=== PATIENT | female | born 1955 | race Caucasian/White ===

== ENCOUNTER 2016-12-20 09:57 | Inpatient (IN) ==
--- NOTE | 2016-12-20 10:04 | Emergency Department Note ---
Disposition Clinical Impression: Supratherapeutic INR Pneumonia Qualifiers: Pneumonia type: due to unspecified organism Laterality: unspecified laterality Lung location: unspecified part of lung Qualified Code(s): J18.9 - Pneumonia, unspecified organism Anemia Qualifiers: Anemia type: unspecified type Qualified Code(s): D64.9 - Anemia, unspecified Disposition: Admitted As Inpatient Condition: Good Referrals: Cesar Hendrix MD [Primary Care Provider] - Forms: ED Satisfaction Letter Time of Disposition: 14:47 SOB HPI - General Chief Complaint: ED Shortness of Breath/Dyspnea Stated Complaint: MARK/weakness Time Seen by Provider: 12/20/16 10:03 Source: patient Limitations: no limitations Nursing Notes Reviewed: Yes Vital Signs Reviewed: Yes - History of Present Illness Mrs. Freire, a 61-year-old female, presents from home via EMS for dyspnea. Patient is a difficult historian area and history obtained from patient and who is now bedside. For last 2 days, patient has had progressive increased work of breathing. She has a history of COPD but does not use any home oxygen. She also describes a heavy sensation in her abdomen which progresses and floats upward toward her head; states this is consistent with her previous anxiety attacks. Additionally, patient reports increased confusion onset after a syncopal episode. Patient was caught by her thus did not fall and did not strike her head. She has no history of CVA or TIA. She has had no slurring of speech and no focal neurologic deficits but increase in confusion. Had arthroscopic left shoulder surgery approximately 3 weeks ago. PMH: Recurrent DVT on Coumadin. Seizure history on Dilantin. Anxiety and depression. ROS: Positive: As above Negative: Fever, chills, nausea, vomiting, hematochezia, melena, hematuria, abdominal pain, chest pains, palpitations, change in cough - Related Data Home Medications Medication Instructions Recorded Confirmed FLUoxetine HCl [Fluoxetine HCl] 40 mg PO DAILY 12/20/16 12/20/16 Phenytoin ER [Dilantin ER] 400 mg PO QAM 12/20/16 12/20/16 Warfarin [Coumadin] 5 mg PO QPM 12/20/16 12/20/16 Allergies Allergy/AdvReac Type Severity Reaction Status Date / Time Penicillins Allergy Rash Verified 10/30/14 05:23 All systems ED: reviewed and negative except as stated. 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 HEENT: No facial asymmetry. Head is normocephalic and atraumatic. PERRLA, EOMI. scopic exam shows no papilledema bilaterally, no retinal hemorrhages. Trachea midline. Cardiovascular: Heart regular rate and rhythm without clicks, rubs, gallops, or murmurs. No JVD. PMI nondisplaced. Lateral radial posterior tibial pulses 2/ 4 equal. No pedal edema. Respiratory: Symmetric chest rise with good respiratory effort. Bilateral breath sounds are diminished with diffuse wheeze; no crackles or rhonchi. Abdomen: Scaphoid. Bowel sounds present normoactive x-4 quadrants. Abdomen is soft, nondistended, and nontender. No organomegaly noted. Musculoskeletal: Muscle strength 5/5 and symmetric bilaterally in upper and lower extremities. Neuro: Cranial nerves II through XII without deficit. Sensation light touch intact and equal bilaterally. No pronator drift. No cerebellar signs. Negative [id number]. Psych: Patient's affect is appropriate for situation. - General Limitations: no limitations General appearance: alert, in no apparent distress Course Course Narrative: Patient's presenting symptoms this necessitated a broad workup. Will perform chest pain workup as well as CT head. Patient has supratherapeutic INR. No clinical evidence of bleeding. We will hold on vitamin K or blood product at this time. Continue to monitor. Patient is anemic with hemoglobin 8.5. No clinical indication to transfuse at this time. No prior records for comparison. We will continue to monitor. Chest x-ray and physical exam concerning for pneumonia. Patient comes from home and has no recent hospitalizations; this is community acquired pneumonia. Will begin empiric treatment. CT head has a questionable density changes. No clinical concern for acute infarct. Will admit for MRI. Discussed in detail above with the patient and her and son at bedside. They are in agreement to admission for continued workup and evaluation. There are no additional questions or concerns at this time. Reason for admission: Supratherapeutic INR, anemia, respiratory failure secondary to pneumonia requiring some oxygen which she does not have a home. I discussed the patient with the admitting hospitalist, Dr. Hernández, who agrees to accept the patient for continued evaluation and management. Chest X-Ray 12/20/16 10:05 IMPRESSION: 1. Patchy airspace opacity in the right base. In the proper clinical setting, finding would be compatible with pneumonia. Recommend follow-up chest radiograph 6-8 weeks post completion of treatment to ensure resolution. If finding persists at that time, CT of the chest would be recommended. 2. Emphysema. D/ / Brian Adams MD / Brian Adams MD Interpreting Provider: Brian Adams MD Head CT 12/20/16 10:05 IMPRESSION: 1. No acute intracranial hemorrhage or global mass effect. 2. Questionable subcentimeter focus of cbaral-white interface hypodense changes. This could represent volume averaging artifact or possible remote process. If concern for acute infarct evaluation with MRI could be helpful. D/ / 12/20/2016 11:02:41 Anshu Oropeza MD / yamileth Interpreting Provider: Anshu Oropeza MD Vital Signs Temperature 98.4 F 12/20/16 09:59 Pulse Rate 86 12/20/16 09:59 Respiratory Rate 18 12/20/16 09:59 Blood Pressure 170/112 12/20/16 09:59 O2 Sat by Pulse Oximetry 96 12/20/16 09:59 Temperature 98.4 F 12/20/16 09:59 Pulse Rate 94 12/20/16 15:02 Respiratory Rate 16 12/20/16 15:02 Blood Pressure 145/84 12/20/16 15:02 O2 Sat by Pulse Oximetry 94 12/20/16 15:02 Oxygen Delivery Oxygen Delivery Room Air Shortness of Breath/Dyspnea - Lab Data Result diagrams: 12/20/16 10:08 12/20/16 10:08 Lab Results 12/20/16 12/20/16 12/20/16 Range/Units 10:08 10:08 10:08 WBC 8.7 (4.3-11.1) K/mcL RBC 5.10 H (3.82-4.97) M/mcL Hgb 8.5 L (11.5-15.4) g/dL Hct 30.0 L (35.3-44.9) % MCV 58.8 L (83.0-100.0) fL MCH 16.7 L (28.0-33.3) pg MCHC 28.3 L (31.6-35.5) g/dL RDW 23.0 H (11.5-14.5) % Plt Count 441 H (140-400) K/mcL MPV 8.2 L (9.4-12.4) fL Immature Gran % 0.2 (0-4) % Seg Neutrophils % 75.7 % Lymphocytes % 16.1 % Monocytes % 6.2 % Eosinophils % 1.1 % Basophils % 0.7 % Neutrophils # 6.6 (1.6-8.9) K/mcL Lymphocytes # 1.4 (0.6-4.6) K/mcL Monocytes # 0.5 (0.0-1.3) K/mcL Eosinophils # 0.1 (0.0-0.6) K/mcL Basophils # 0.1 (0.0-0.2) K/mcL Platelet Estimate Normal (Normal) Immature Plt Fraction 1.5 (1.1-6.1) % Hypochromasia Present A (Not Present) Anisocytosis 1+ A (Not Present) Microcytosis Present A (Not Present) Macrocytosis Present A (Not Present) PT 67.0 H* D (9.4-12.1) Seconds INR 6.0 H* D Sodium 132 L (136-145) mEq/L Potassium 3.5 (3.5-4.5) mEq/L Chloride 97 L (98-109) mEq/L Carbon Dioxide 28 (19-29) mEq/L BUN 6 L (7-20) mg/dL Creatinine 0.60 (0.57-1.11) mg/dL Est GFR ( Amer) > 60 (> 60) Est GFR (Non-Af Amer) > 60 (> 60) BUN/Creatinine Ratio 10 (6-26) Glucose 105 H (70-99) mg/dL Calculated Osmolality 272 L (280-300) Calcium 9.6 (8.6-10.8) mg/dL Troponin I (0-0.03) ng/mL TSH 0.745 (0.350-4.840) mcIU/mL Urine Color (Yellow) Urine Clarity (Clear) Urine pH (5.0-8.0) pH Units Ur Specific [place] (1.010-1.025) Urine Protein (Neg-Trace) mg/dL Urine Glucose (UA) (Normal) mg/dL Urine Ketones (Negative) mg/dL Urine Blood (Negative) Urine Nitrite (Negative) Urine Bilirubin (Negative) Urine Urobilinogen (Normal) mg/dL Ur Leukocyte Esterase (Negative) Ur Culture Indicated? (NO) 12/20/16 12/20/16 Range/Units 10:08 11:43 WBC (4.3-11.1) K/mcL RBC (3.82-4.97) M/mcL Hgb (11.5-15.4) g/dL Hct (35.3-44.9) % MCV (83.0-100.0) fL MCH (28.0-33.3) pg MCHC (31.6-35.5) g/dL RDW (11.5-14.5) % Plt Count (140-400) K/mcL MPV (9.4-12.4) fL Immature Gran % (0-4) % Seg Neutrophils % % Lymphocytes % % Monocytes % % Eosinophils % % Basophils % % Neutrophils # (1.6-8.9) K/mcL Lymphocytes # (0.6-4.6) K/mcL Monocytes # (0.0-1.3) K/mcL Eosinophils # (0.0-0.6) K/mcL Basophils # (0.0-0.2) K/mcL Platelet Estimate (Normal) Immature Plt Fraction (1.1-6.1) % Hypochromasia (Not Present) Anisocytosis (Not Present) Microcytosis (Not Present) Macrocytosis (Not Present) PT (9.4-12.1) Seconds INR Sodium (136-145) mEq/L Potassium (3.5-4.5) mEq/L Chloride (98-109) mEq/L Carbon Dioxide (19-29) mEq/L BUN (7-20) mg/dL Creatinine (0.57-1.11) mg/dL Est GFR ( Amer) (> 60) Est GFR (Non-Af Amer) (> 60) BUN/Creatinine Ratio (6-26) Glucose (70-99) mg/dL Calculated Osmolality (280-300) Calcium (8.6-10.8) mg/dL Troponin I 0.01 (0-0.03) ng/mL TSH (0.350-4.840) mcIU/mL Urine Color Yellow (Yellow) Urine Clarity Slightly Hazy (Clear) Urine pH 7.0 (5.0-8.0) pH Units Ur Specific [place] 1.017 (1.010-1.025) Urine Protein Negative (Neg-Trace) mg/dL Urine Glucose (UA) Normal (Normal) mg/dL Urine Ketones Negative (Negative) mg/dL Urine Blood Negative (Negative) Urine Nitrite Negative (Negative) Urine Bilirubin Negative (Negative) Urine Urobilinogen Normal (Normal) mg/dL Ur Leukocyte Esterase Negative (Negative) Ur Culture Indicated? NO (NO) Critical Care Time Critical Care Time: Yes Total Critical Care Time: 35 Attestation: Critical care time 35 minutes. Attestation Statement - Attestation Attestation: Patient was seen with resident physician. I reviewed the history, physical, assessment and plan, and agree with the findings. I also personally evaluated this patient and had [id number] time with this patient. 61-year-old female presents to the emergency department with a chief complaint of weakness and shortness of breath. Patient is a history of COPD. Apparently she was getting some lab tests done and she had a syncopal or near syncopal episode. The not sure if she actually passed out all the way or not. She said the symptoms then continued with some confusion and difficulty, pushing past. No focal weakness. Because they have not resolved since . She came in for evaluation and treatment today. She denies fevers chills chest pain or shortness of breath. On exam vital signs are stable. ENT is unremarkable. Heart sounds are normal. Lung has diffuse wheezing throughout all lung stone. Abdomen is soft and nontender. Extremities unremarkable. Neurologically the patient is intact, and I cannot find any focal neurologic deficits. ED course we will do a complete workup for neurologic and syncopal findings. We will also treat and workup for COPD exacerbation. Chest x-ray revealed possible pneumonia. CT scan of the head initially revealed a possible area which needed an MRI to exclude hemorrhage. The MRI was negative. Had long discussion with the patient who did not want the MRI and did not want to stay in the hospital, however she has multiple problems which do require hospitalization and further workup. We gave the patient some Ativan to help her relax which did allow her to tolerate the workup. We also spoke with the hospitalist service to arrange for admission. Patient hemodynamically remained stable, but she will need some pulmonary care as well as further workup for her symptoms of confusion. Will admit to the hospitalist service for additional evaluation and treatment. I agree with resident physician assessment and plan. Critical care time 35 minutes.
[2016-12-20] MEDS ORDERED: methylPREDNISolone 125 MG/2 ML VIAL IVP ONE (10:05)
[2016-12-20] MEDS ORDERED: Ipratropium/Albuterol Neb 3 ML IH ONE (10:05)
[2016-12-20 10:17] LABS: Basophils % 0.7 %
[2016-12-20 10:19] LABS: Basophils # 0.1 K/mcL (0.0-0.2); Eosinophils # 0.1 K/mcL (0.0-0.6); Eosinophils % 1.1 %; Hemoglobin 8.5 g/dL (11.5-15.4); Immature Granulocytes % 0.2 % (0-4); Immature Platelets 1.5 % (1.1-6.1); Lymphocytes # 1.4 K/mcL (0.6-4.6); Lymphocytes % 16.1 %; Mean Corpuscular HGB Conc 28.3 g/dL (31.6-35.5); Mean Corpuscular Hemoglobin 16.7 pg (28.0-33.3); Mean Corpuscular Volume 58.8 fL (83.0-100.0); Mean Platelet Volume 8.2 fL (9.4-12.4); Monocytes # 0.5 K/mcL (0.0-1.3); Monocytes % 6.2 %; Neutrophils # 6.6 K/mcL (1.6-8.9); Platelet Count 441 K/mcL (140-400); Segmented Neutrophils % 75.7 %
[2016-12-20 10:29] LABS: Blood Urea Nitrogen 6 mg/dL (7-20); Calcium 9.6 mg/dL (8.6-10.8); Carbon Dioxide 28 mEq/L (19-29); Chloride 97 mEq/L (98-109); Glucose 105 mg/dL (70-99); Osmolality,Calculated 272 (280-300); Potassium 3.5 mEq/L (3.5-4.5); Sodium 132 mEq/L (136-145)
[2016-12-20 10:45] LABS: BUN/Creatinine Ratio 10 (6-26); eGFR For African Americans > 60 (> 60); eGFR For Non-African Americans > 60 (> 60)
[2016-12-20 10:46] LABS: Anisocytosis 1+ (Not Present); Hypochromasia Present (Not Present); Macrocytosis Present (Not Present); Microcytosis Present (Not Present)
[2016-12-20 10:47] LABS: Platelet Estimate Normal (Normal)
[2016-12-20 11:07] LABS: Thyroid Stimulating Hormone 0.745 mcIU/mL (0.350-4.840)
[2016-12-20 12:09] LABS: Bilirubin,Urine Negative (Negative); Blood,Urine Negative (Negative); Color,Urine Yellow (Yellow); Glucose,Urine (UA) Normal (Normal); Ketones,Urine Negative (Negative); Leukocyte Esterase,Urine Negative (Negative); Nitrite,Urine Negative (Negative); Protein,Urine Negative (Neg-Trace); Specific Gravity,Urine 1.017 (1.010-1.025); Urobilinogen,Urine Normal (Normal)
[2016-12-20 12:12] LABS: Clarity,Urine Slightly Hazy (Clear)
[2016-12-20] MEDS ORDERED: *HR* LORazepam 2 MG/ML VIAL IVP ONE ×4 (12:40→17:01)
[2016-12-20] MEDS ORDERED: Azithromycin 500 MG in D5% in Water 250 ML IVPB ONE (14:45)
[2016-12-20] MEDS ORDERED: Ondansetron 4 MG/2 ML VIAL IVP PRN (16:51)
[2016-12-20] MEDS ORDERED: *HR* Morphine 2 MG/ML SYRINGE IVP PRN (16:51)
[2016-12-20] MEDS ORDERED: *HR* HYDROcodone/Acet 5/325 mg TABLET PO PRN (16:51)
[2016-12-20] MEDS ORDERED: Acetaminophen 325 MG TABLET PO PRN (16:51)
[2016-12-20] MEDS ORDERED: Naloxone 0.4 MG/ML INJ IVP PRN (16:51)
[2016-12-20] MEDS ORDERED: Benzonatate 100 MG CAPSULE PO PRN (16:59)
[2016-12-20 17:28] LABS: Hemoglobin 7.2 g/dL (11.5-15.4)
[2016-12-20 17:30] LABS: Hematocrit 25.2 % (35.3-44.9)
[2016-12-20] MEDS ORDERED: Warfarin perPT PO PRN (18:00)
[2016-12-20] MEDS: cefTRIAXone 1,000 MG in Water for inj. (sterile) 10 ML IVPB SCH (18:14)
[2016-12-20] MEDS: 0.9 % Sodium Chloride 1,000 ML IVC SCH (18:15)
--- NOTE | 2016-12-20 18:47 | Internal Med History&Physical ---
<Miguel AnavneetvineetRaul jay - Last Filed: 12/20/16 19:26> Date of Encounter: 12/20/16 Time of Encounter: 15:00 Assessment and Plan (1) Pneumonia Current visit: Yes Status: Acute CXR today shows patchy airspace opacities seen in the right base. The proper clinical setting finding would be compatible with pneumonia. IVPB azithromycin 500 mg daily and ceftriaxone 1,000 mg daily for infection coverage. DuoNebs Q6HR scheduled. Tessalon 100 mg TID for cough. Supplemental O2 w/titration and SpO2 monitoring. Blood cultures x2. Sputum culture. 0.9 NS @ 100 mL/HR. Patient does not currently meet SIRS criteria. Will monitor pt. and f/u labs for signs of increasing infection, cardiac, and/or respiratory distress. Pt. is at high risk for further infection/sepsis and/or respiratory distress based on current sx. Inpatient. Qualifiers: Pneumonia type: due to unspecified organism Laterality: unspecified laterality Lung location: unspecified part of lung Qualified Code(s): J18.9 - Pneumonia, unspecified organism (2) Supratherapeutic INR Current visit: Yes Status: Acute Acute PT of 67.0 and INR of 6.0 today on admission. Patient takes warfarin for anticoagulation. Coumadin to be continued pharmacy dosing. Monitor patient for signs of bleeding. Repeat labs in a.m. (3) Hyponatremia Current visit: Yes Status: Acute Acute hyponatremia and hypochloremia. Sodium 132 and chloride 97 on admission. Pt. receiving 0.9 NS 100 mL/HR. Will re-check f/u labs. (4) Anemia Current visit: Yes Status: Acute Acute anemia with Hgb of 8.5 and Hct of 30.0 earlier today dropping to 7.2 and 25.2 on second labs. Monitor H/H Q6HR. SCDs for DVT prophylaxis. Monitor pt. for signs of bleeding. Pt. previously typed and screened for possible transfusion. Qualifiers: Anemia type: unspecified type Qualified Code(s): D64.9 - Anemia, unspecified (5) Tobacco abuse Current visit: Yes Status: Chronic Hx of chronic tobacco abuse. Patient's reports she smokes 1 pack per day currently. (6) DVT prophylaxis Current visit: Yes Status: Acute Bilateral SCDs on LEs for DVT prophylaxis. Pharmacologic DVT prophylaxis contraindicated due to patient's currently dropping Hgb and Hct. Monitor pt. for signs of bleeding. Internal Medicine - H&P: HPI Chief complaint: SOB/Dyspnea Admitted From: Emergency Dept Plans for Post Hospital Care: Home History of present illness: Ms. Freire is a 61 year old female with medical hx of DVTs and seizures presents from the ED with chief complaint of shortness of breath and dyspnea since last . Patient's is primary information provider due to patient being somnolent from medication given prior to testing for agitation. Patient' s states she collapsed all on and he was able to catch her without her striking her head. He also states she has a history of anxiety attacks, has a history of COPD, and states she has become increasingly short of breath. He denies she has a history of CVA or TIA. He reports she has not had any recent illness, fever, chills, nausea, or, headaches, abdominal pain, chest pain, palpitations, changes, or unusual bleeding. Past Med Surg Social Fam HX - Past Medical History Source: old records reviewed, obtained from family Medical history: DVT, seizures Psychiatric history: anxiety, depression - Past Surgical History Surgical History: cholecystectomy - Social History Smoking Status: Current every day smoker Packs per day: 1 PPD Smokeless Tobacco Status: No Alcohol use: none Drug use: none Current living situation: Home, With Family Activity Level: Independent ambulation Recent Out of Country Travel Within the Last 8 Weeks: No Exposure or Possible Exposure to Illness During Travel: No Internal Medicine - H&P: Meds FLUoxetine HCl [Fluoxetine HCl] 40 mg PO DAILY 12/20/16 [History] Phenytoin ER [Dilantin ER] 400 mg PO QAM 12/20/16 [History] Warfarin [Coumadin] 5 mg PO QPM 12/20/16 [History] 3 Allergy/AdvReac Type Severity Reaction Status Date / Time Penicillins Allergy Rash Verified 10/30/14 05:23 ROS unobtainable: due to mental status, other (Patient's provides all ROS information) All Systems PM: A 10-system review of systems was performed and is negative for pertinent findings except as documented above in the HPI. - Constitutional Constitutional: no chills, no fever(s), no night sweats - EENT Eyes: no change in vision, no discharge, no pain, no photophobia Ears: no ear discharge, no ear pain, no tinnitus Nose, mouth and throat: no dysphagia, no nasal discharge, no neck pain, no sore throat - Breasts Breasts: as per HPI - Cardiovascular Cardiovascular ROS IM: dyspnea, dyspnea on exertion, syncope, no chest pain, no diaphoresis, no lightheadedness, no palpitations - Respiratory Respiratory: as per HPI, cough, dyspnea, dyspnea on exertion, wheezing - Gastrointestinal Gastrointestinal: no abdominal pain, no diarrhea, no hematemesis, no hematochezia, no melena, no nausea, no vomiting - Genitourinary Genitourinary: no change in urinary stream, no dysuria, no flank pain, no hematuria Menstruation: as per HPI - Musculoskeletal Musculoskeletal ROS IM: no numbness, no tingling - Integumentary Integumentary IM: no rash, no unusual bruising - Neurological Neurological ROS: no confusion, no convulsions, no focal weakness, no numbness, no tingling, no tremor(s) - Psychiatric Psychiatric: as per HPI, anxiety - Endocrine Endocrine IM: as per HPI - Hematologic/Lymphatic Hematologic/Lymphatic: no easy bruising - Allergic/Immunologic Allergic/Immunologic: as per HPI - Constitutional Vitals: Temp Pulse Resp BP Pulse Ox 98.1 F 93 15 131/75 94 12/20/16 15:55 12/20/16 15:55 12/20/16 15:55 12/20/16 15:55 12/20/16 15:55 General appearance: Present: A&O X 0 - Head Head exam: Present: normal inspection - Eye Eye exam: Present: normal appearance, PERRL, conjuntiva pink, sclera anicteric Pupils: Present: PERRL - ENT ENT exam: Present: normal exam - Neck Neck exam general surgery: Present: normal inspection - Respiratory Respiratory exam: Present: accessory muscle use, wheezes - Cardiovascular Cardiovascular exam: Present: RRR, +S1, +S2. Absent: diastolic murmur, gallop, rubs, systolic murmur - GI/Abdominal GI/Abdominal exam: Present: normal bowel sounds, soft, no peritoneal signs. Absent: distended, tenderness - Rectal Rectal exam: Present: deferred - Additional comments: exam deferred. - Extremities Exam Extremities exam: Present: warm, radial pulses palpable and symmetrical. Absent : calf tenderness, cyanotic, pedal edema - Back Exam Back exam: Present: normal inspection - Neurological Exam Neurological exam: Present: altered - Skin Skin exam: Present: dry, intact Internal Med - H&P Results - Labs CBC & Chem 7: 12/20/16 17:18 12/20/16 10:08 Labs: Short CBC 12/20/16 Range/Units 17:18 Hgb 7.2 L (11.5-15.4) g/dL Hct 25.2 L (35.3-44.9) % - EKG Data EKG shows normal: sinus rhythm - EKG Data Prior EKG available for review: yes EKG comments: 12/20/16 18:51 EKG dated 01/14/08 shows sinus rhythm with possible inferior infarct (age undetermined), and lateral T-wave changes may be d/t [place]. Abnormal ECG. EKG dated 12/20/16 shows sinus rhythm with nonspecific T-wave abnormality. Borderline ECG. <Ayush Hernández P - Last Filed: 12/21/16 13:38> Date of Encounter: 12/21/16 Internal Medicine - H&P: HPI History of present illness: Ms. Freire is a 61 year old female All Systems PM: A 10-system review of systems was performed and is negative for pertinent findings except as documented above in the HPI. - Constitutional Vitals: Temp Pulse Resp BP Pulse Ox 98.4 F 81 17 161/78 97 12/21/16 11:01 12/21/16 11:01 12/21/16 11:01 12/21/16 11:01 12/21/16 11:01 Internal Med - H&P Results - Labs CBC & Chem 7: 12/21/16 03:14 12/21/16 03:14 Labs: Short CBC 12/20/16 12/20/16 12/21/16 Range/Units 17:18 22:23 03:14 WBC 8.3 (4.3-11.1) K/mcL Hgb 7.2 L 7.2 L 7.3 L (11.5-15.4) g/dL Hct 25.2 L 24.9 L 26.3 L (35.3-44.9) % Plt Count 345 (140-400) K/mcL Neutrophils # 5.4 (1.6-8.9) K/mcL BMP 12/21/16 03:14 Sodium 138 Potassium 3.5 Chloride 105 Carbon Dioxide 26 BUN 5 L Creatinine 0.49 L Glucose 83 Calcium 8.4 L Liver Function 12/21/16 Range/Units 03:14 Total Bilirubin < 0.2 L (0.2-1.2) mg/dL AST 17 (5-34) Units/L ALT 6 (0-55) Units/L Alkaline Phosphatase 160 H (38-126) Units/L Albumin 2.8 L (3.5-5.0) g/dL - Attending Attestation I examined this patient and my medical decision-making was reviewed with the Resident Physician/SPONGE FISHERMAN. I agree with the documented findings, disposition and treatment plan as described except to the extent set forth below. agree with below.
[2016-12-20] MEDS: Pantoprazole 40 MG VIAL IVP SCH (20:02)
[2016-12-20] MEDS: Ipratropium/Albuterol Neb 3 ML IH SCH (22:25)
[2016-12-20 22:31] LABS: Hematocrit 24.9 % (35.3-44.9); Hemoglobin 7.2 g/dL (11.5-15.4)
[2016-12-21] MEDS: Ipratropium/Albuterol Neb 3 ML IH SCH ×4 (03:17→21:54)
[2016-12-21 03:31] LABS: Basophils % 0.6 %; Hemoglobin 7.3 g/dL (11.5-15.4); Mean Platelet Volume 8.3 fL (9.4-12.4); Red Cell Distribution Width 22.5 % (11.5-14.5)
[2016-12-21 03:32] LABS: Basophils # 0.1 K/mcL (0.0-0.2); Eosinophils # 0.1 K/mcL (0.0-0.6); Eosinophils % 1.2 %; Hematocrit 26.3 % (35.3-44.9); Immature Granulocytes % 0.6 % (0-4); Lymphocytes % 23.6 %; Mean Corpuscular HGB Conc 27.8 g/dL (31.6-35.5); Mean Corpuscular Hemoglobin 16.4 pg (28.0-33.3); Mean Corpuscular Volume 59.2 fL (83.0-100.0); Monocytes # 0.7 K/mcL (0.0-1.3); Monocytes % 8.6 %; Neutrophils # 5.4 K/mcL (1.6-8.9); Platelet Count 345 K/mcL (140-400); Red Blood Count 4.44 M/mcL (3.82-4.97); Segmented Neutrophils % 65.4 %
[2016-12-21 03:33] LABS: Activated Partial Thrombo Time 48.6 Seconds (26.0-36.0)
[2016-12-21 03:36] LABS: INR 5.2; Prothrombin Time 58.1 Seconds (9.4-12.1)
[2016-12-21 03:43] LABS: Alanine Aminotransferase 6 Units/L (0-55); Albumin 2.8 g/dL (3.5-5.0); Albumin/Globulin Ratio 0.9 (1.1-2.2); Alkaline Phosphatase 160 Units/L (38-126); Aspartate Amino Transferase 17 Units/L (5-34); BUN/Creatinine Ratio 10 (6-26); Calcium 8.4 mg/dL (8.6-10.8); Carbon Dioxide 26 mEq/L (19-29); Chloride 105 mEq/L (98-109); Chol/HDL Ratio 2.4 (0-4.9); Cholesterol 142 mg/dL (< 200); Globulin 3.1 g/dL (2.4-3.5); Glucose 83 mg/dL (70-99); HDL Cholesterol 59 mg/dL (40-59); LDL Cholesterol,Calculated 70 mg/dL (0-99); Magnesium 1.9 mg/dL (1.6-2.6); Osmolality,Calculated 282 (280-300); Potassium 3.5 mEq/L (3.5-4.5); Sodium 138 mEq/L (136-145); Total Protein 5.9 g/dL (6.0-8.3); Triglycerides 66 mg/dL (< 150); eGFR For African Americans > 60 (> 60); eGFR For Non-African Americans > 60 (> 60)
[2016-12-21 03:45] LABS: Bilirubin,Total < 0.2 mg/dL (0.2-1.2); Blood Urea Nitrogen 5 mg/dL (7-20)
[2016-12-21 03:53] LABS: Hypochromasia Present (Not Present)
[2016-12-21 03:55] LABS: Anisocytosis 2+ (Not Present); Microcytosis Present (Not Present)
[2016-12-21 03:56] LABS: Platelet Estimate Normal (Normal)
[2016-12-21 03:57] LABS: Schistocytes 1+ (Not Present)
[2016-12-21] MEDS: 0.9 % Sodium Chloride 1,000 ML IVC SCH ×2 (05:44→16:29)
[2016-12-21] MEDS: Pantoprazole 40 MG VIAL IVP SCH ×2 (06:17→20:13)
--- NOTE | 2016-12-21 07:10 | Electrocardiograph Report ---
[facility] [employer] Test Date: 2016-12-20 Pat Name: Hayde Freire Department: 103 Room: 2A22 Gender: F Drawing In Hand: AM : 1955 Requested By: Brad Jackson Order Number: [id number] Reading MD: Pepe Tran MD Measurements Intervals [place] Rate: 80 P: 71 [place]: 141 QRS: 75 QRSD: 87 T: 44 QT: 394 QTc: 430 Interpretive Statements SINUS RHYTHM NONSPECIFIC T-WAVE ABNORMALITY Electronically Signed On 12-21-2016 7:09:06 EST by Pepe Tran MD
[2016-12-21] MEDS: FLUoxetine 20 MG CAPSULE PO SCH (08:08)
[2016-12-21] MEDS: cefTRIAXone 1,000 MG in Water for inj. (sterile) 10 ML IVPB SCH (08:09)
[2016-12-21] MEDS ORDERED: Azithromycin 500 MG in D5% in Water 250 ML IVPB SCH (16:00)
--- NOTE | 2016-12-21 16:32 | Internal Med Progress Note ---
Date of Encounter: 12/21/16 Time of Encounter: 16:30 - Assessment and plan (1) Pneumonia Current Visit: Yes Status: Acute Qualifiers: Pneumonia type: due to unspecified organism Laterality: unspecified laterality Lung location: unspecified part of lung Qualified Code(s): J18.9 - Pneumonia, unspecified organism (2) Syncope Current Visit: Yes Status: Acute Qualifiers: Encounter type: initial encounter Qualified Code(s): T67.1XXA - Heat syncope, initial encounter (3) Supratherapeutic INR Current Visit: Yes Status: Acute (4) Anemia Current Visit: Yes Status: Acute Qualifiers: Anemia type: unspecified type Qualified Code(s): D64.9 - Anemia, unspecified - Subjective Interval history: Patient is admitted overnight for pneumonia. She had an episode during which while she had a blood draw and as she was walking out of lab she passed out. She had quite a few of those in last few months. She is known to have seizure and she is on anti seizure medication. I interviewed her and he had some concern that this could be a seizure because usually what he described as she gets absent seizures or partial seizures where she will pass out and then after 34 minutes wake up but there would not be much postictal. At least not more than a few minutes. This situation is rather confusing. I have ordered an echocardiogram and carotid ultrasound and in EEG and will consult neurology also to see if he needs to adjust her seizure medication however by history it appears to me she had a vasovagal phenomena. The other possibility is her underlying anemia and her hemoglobin is only started around 7. Her MCV is quite low therefore I will order iron profile stool Hemoccult and repeat CBC and CMP tomorrow. Her INR was around [address] head was negative for bleed. Her Coumadin is on hold and INR this morning is 5.2. - Constitutional Vitals: Temp Pulse Resp BP Pulse Ox 98.6 F 88 20 135/76 95 12/21/16 15:59 12/21/16 15:59 12/21/16 15:59 12/21/16 15:59 12/21/16 15:59 General appearance: Present: A&O X 0 - Head Head exam: Present: atraumatic, normocephalic - Eye Eye exam: Present: PERRL, conjuntiva pink, sclera anicteric Pupils: Present: PERRL - Neck Neck exam general surgery: Present: supple, trachea midline. Absent: lymphadenopathy - Respiratory Respiratory exam: Present: CTAB. Absent: accessory muscle use, rales, rhonchi, wheezes - Cardiovascular Cardiovascular exam: Present: RRR, +S1, +S2. Absent: diastolic murmur, gallop, rubs, systolic murmur - GI/Abdominal GI/Abdominal exam: Present: normal bowel sounds, soft, no peritoneal signs. Absent: distended, tenderness - Extremities Exam Extremities exam: Present: warm, radial pulses palpable and symmetrical. Absent : calf tenderness, cyanotic, pedal edema - Neurological Exam Neurological exam: Present: CN II-XII intact, oriented X3, no focal deficits. Absent: pronater drift, facial droop, speech deficit - Skin Skin exam: Present: dry, intact Internal Medicine: Result - Labs CBC & Chem 7: 12/21/16 03:14 12/21/16 03:14 Labs: Short CBC 12/20/16 12/20/16 12/21/16 Range/Units 17:18 22:23 03:14 WBC 8.3 (4.3-11.1) K/mcL Hgb 7.2 L 7.2 L 7.3 L (11.5-15.4) g/dL Hct 25.2 L 24.9 L 26.3 L (35.3-44.9) % Plt Count 345 (140-400) K/mcL Neutrophils # 5.4 (1.6-8.9) K/mcL BMP 12/21/16 03:14 Sodium 138 Potassium 3.5 Chloride 105 Carbon Dioxide 26 BUN 5 L Creatinine 0.49 L Glucose 83 Calcium 8.4 L Liver Function 12/21/16 Range/Units 03:14 Total Bilirubin < 0.2 L (0.2-1.2) mg/dL AST 17 (5-34) Units/L ALT 6 (0-55) Units/L Alkaline Phosphatase 160 H (38-126) Units/L Albumin 2.8 L (3.5-5.0) g/dL - ABG Interpretation ABG results: PT/INR, D-dimer PT 58.1 Seconds (9.4-12.1) H* 12/21/16 03:14 Consult Discharge Plan - Plan Referrals: Cesar Hendrix MD [Primary Care Provider] -
[2016-12-22] MEDS: 0.9 % Sodium Chloride 1,000 ML IVC SCH (03:05)
[2016-12-22 04:01] LABS: Prothrombin Time 21.7 Seconds (9.4-12.1)
[2016-12-22 04:07] LABS: Basophils # 0.1 K/mcL (0.0-0.2); Basophils % 0.8 %; Eosinophils # 0.1 K/mcL (0.0-0.6); Eosinophils % 1.5 %; Hematocrit 24.1 % (35.3-44.9); Hemoglobin 6.7 g/dL (11.5-15.4); Immature Granulocytes % 0.3 % (0-4); Lymphocytes # 1.8 K/mcL (0.6-4.6); Lymphocytes % 25.2 %; Mean Corpuscular HGB Conc 27.8 g/dL (31.6-35.5); Mean Corpuscular Hemoglobin 16.5 pg (28.0-33.3); Mean Corpuscular Volume 59.2 fL (83.0-100.0); Mean Platelet Volume 8.3 fL (9.4-12.4); Monocytes # 0.7 K/mcL (0.0-1.3); Monocytes % 9.2 %; Neutrophils # 4.5 K/mcL (1.6-8.9); Platelet Count 332 K/mcL (140-400); Red Blood Count 4.07 M/mcL (3.82-4.97); Red Cell Distribution Width 22.4 % (11.5-14.5)
[2016-12-22 04:16] LABS: Albumin 2.7 g/dL (3.5-5.0); Albumin/Globulin Ratio 0.9 (1.1-2.2); Alkaline Phosphatase 144 Units/L (38-126); Aspartate Amino Transferase 15 Units/L (5-34); BUN/Creatinine Ratio 11 (6-26); Calcium 8.2 mg/dL (8.6-10.8); Carbon Dioxide 27 mEq/L (19-29); Chloride 106 mEq/L (98-109); Globulin 3.1 g/dL (2.4-3.5); Glucose 79 mg/dL (70-99); Osmolality,Calculated 284 (280-300); Potassium 3.6 mEq/L (3.5-4.5); Sodium 139 mEq/L (136-145); Total Protein 5.8 g/dL (6.0-8.3); eGFR For African Americans > 60 (> 60); eGFR For Non-African Americans > 60 (> 60)
[2016-12-22 04:18] LABS: Alanine Aminotransferase < 6 Units/L (0-55); Bilirubin,Total < 0.2 mg/dL (0.2-1.2); Blood Urea Nitrogen 5 mg/dL (7-20)
[2016-12-22 04:32] LABS: Anisocytosis 2+ (Not Present); Hypochromasia Present (Not Present); Microcytosis Present (Not Present); Platelet Estimate Normal (Normal)
[2016-12-22] MEDS: Ipratropium/Albuterol Neb 3 ML IH SCH ×3 (04:38→15:39)
[2016-12-22 05:24] LABS: % Iron Saturation 3 % (15-50); Iron 11 mcg/dL (50-170); Transferrin 273 mg/dL (180-382)
[2016-12-22] MEDS: Pantoprazole 40 MG VIAL IVP SCH (08:11)
[2016-12-22] MEDS: FLUoxetine 20 MG CAPSULE PO SCH (08:12)
[2016-12-22] MEDS: cefTRIAXone 1,000 MG in Water for inj. (sterile) 10 ML IVPB SCH (08:12)
[2016-12-22] MEDS ORDERED: Iron Dextran Complex 100 MG in 0.9 % Sodium Chloride 500 ML IVPB ONE (09:37)
[2016-12-22] MEDS ORDERED: 0.9 % Sodium Chloride 500 ML ONE (10:35)
--- NOTE | 2016-12-22 12:01 | Neurology - Consult Note ---
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 Seizures have been under control with Dilantin monotherapy. Not convinced that the current episode was a seizure. Per her seizure history, she has only grand mal type of seizures. Due to her focal encephalomalacia, she is at risk of recurrent partial seizure therefore will recommend continuing antiepileptic therapy. She is to follow up with PCP for follow up of her seizure. She is offered to follow up with us but she declined. Dilantin level pending. Patient can be discharged from neurology point of view. History of Present Illness Chief complaint: passing out vs seizure HPI: Ms. Freire is a 61 year old female with COPD, history of seizure disorder who developed in the last few days difficulty breathing, weakness, near syncope episodes. Neurology was consulted due to her having seizure disorder. Patient was found to have supratherapeutic level of INR, and x-ray findings suggesting pneumonia. Patient reportedly had near syncopal on last . This was not her typical seizure though. She has had about 6-7 grand mal seizures in her whole life. She had her first seizure at age of 6 months old. MRI of brain showed left frontal focal encephalomalacia. SHe has not had any grand mal seizures more than 5 years. She has no other types of seizures. She usually follows her PCP to check her phenytoin levels. She takes dilantin 400mg ER daily. Phenytoin level is not available for review Past Med Surg Social Fam HX - Past Medical History Medical history: DVT, seizures Psychiatric history: anxiety, depression - Past Surgical History Surgical History: cholecystectomy - Social History Smoking Status: Current every day smoker Packs per day: 1 PPD Smokeless Tobacco Status: No Alcohol use: none Drug use: none Medications and Allergies FLUoxetine HCl [Fluoxetine HCl] 40 mg PO DAILY 12/20/16 [History] Phenytoin ER [Dilantin ER] 400 mg PO QAM 12/20/16 [History] Warfarin [Coumadin] 5 mg PO QPM 12/20/16 [History] 3 Allergy/AdvReac Type Severity Reaction Status Date / Time Penicillins Allergy Rash Verified 10/30/14 05:23 All Systems: A 10-system review of systems was performed and is negative for pertinent findings except as documented above in the HPI. Physical Examination - Vital Signs Vital Signs: Initial Vital Signs Temp Pulse Resp BP Pulse Ox 98.4 F 86 18 170/112 96 12/20/16 09:59 12/20/16 09:59 12/20/16 09:59 12/20/16 09:59 12/20/16 09:59 - Constitutional General appearance: chronically ill - Neurologic Sensorimotor examination: intact Detailed motor examination: grossly full strength in all extremities Motor examination - right side: 5/5: deltoids, biceps, triceps, wrist flexion, wrist extension, brain picker, hip flexors, tibialis Anterior, quadriceps, toe extension (EHL), plantarflexion Motor examination - left side: 5/5: deltoids, biceps, triceps, wrist flexion, wrist extension, hip flexors, brain picker, quadriceps, tibialis Anterior, toe extension (EHL), plantarflexion Detailed sensory examination: intact Reflex and gait examination: intact Reflexes: Biceps: 2+, Triceps: 2+, Brachioradialis: 2+, Patella: 2+, Achilles: 2 + Mental Status Examination: awake, alert, oriented to person, oriented to place, oriented to time, follows commands appropriately, answers questions appropriately, no agnosia, no aphasia, no aproxia Cranial nerve examination: PERRL, EOMI, visual stone intact, corneal reflexes brisk symmetrically, sensory to face intact, mastication intact, no facial asymmetry is present, no dysarthria, hearing is intact symmetrically, soft palate elevates bilaterally upon phonation, gag reflex intact, flexes SCM and trapezius muscles symmetrically with full power, tongue protrudes midline, no atrophy or facial fasiculations present Results - Laboratory Findings CBC and BMP: 12/22/16 03:40 12/22/16 03:40 Abnormal lab findings: Abnormal lab results Hgb 6.7 g/dL (11.5-15.4) L 12/22/16 03:40 Hct 24.1 % (35.3-44.9) L 12/22/16 03:40 MCV 59.2 fL (83.0-100.0) L 12/22/16 03:40 MCH 16.5 pg (28.0-33.3) L 12/22/16 03:40 MCHC 27.8 g/dL (31.6-35.5) L 12/22/16 03:40 RDW 22.4 % (11.5-14.5) H 12/22/16 03:40 MPV 8.3 fL (9.4-12.4) L 12/22/16 03:40 Hypochromasia Present (Not Present) A 12/22/16 03:40 Anisocytosis 2+ (Not Present) A 12/22/16 03:40 Microcytosis Present (Not Present) A 12/22/16 03:40 Macrocytosis Present (Not Present) A 12/20/16 10:08 Schistocytes 1+ (Not Present) A 12/21/16 03:14 PT 21.7 Seconds (9.4-12.1) H D 12/22/16 03:40 APTT 48.6 Seconds (26.0-36.0) H 12/21/16 03:14 BUN 5 mg/dL (7-20) L 12/22/16 03:40 Creatinine 0.47 mg/dL (0.57-1.11) L 12/22/16 03:40 Calcium 8.2 mg/dL (8.6-10.8) L 12/22/16 03:40 Iron 11 mcg/dL (50-170) L 12/22/16 03:40 % Saturation 3 % (15-50) L 12/22/16 03:40 Total Bilirubin < 0.2 mg/dL (0.2-1.2) L 12/22/16 03:40 Alkaline Phosphatase 144 Units/L (38-126) H 12/22/16 03:40 Serum Total Protein 5.8 g/dL (6.0-8.3) L 12/22/16 03:40 Albumin 2.7 g/dL (3.5-5.0) L 12/22/16 03:40 Albumin/Globulin Ratio 0.9 (1.1-2.2) L 12/22/16 03:40 Consult Discharge Plan - Plan Referrals: Cesar Hendrix MD [Primary Care Provider] - 12/28/16 1:00 pm (please follow up as schedule...)
[2016-12-22 13:31] VITALS: BP 152/68
[2016-12-22 15:49] LABS: Hematocrit 29.5 % (35.3-44.9)
[2016-12-22 15:50] LABS: Hemoglobin 8.5 g/dL (11.5-15.4)
[2016-12-22] MEDS ORDERED: Azithromycin 250 MG TABLET PO SCH (16:00)
--- NOTE | 2016-12-22 16:39 | Discharge Summary ---
Date of Encounter: 12/22/16 Time of Encounter: 16:30 - Discharge Diagnosis (1) Acute respiratory failure with hypoxia Priority: Primary Status: Acute (2) Syncope Priority: Primary Status: Acute Qualifiers: Encounter type: initial encounter Qualified Code(s): T67.1XXA - Heat syncope, initial encounter (3) Pneumonia Priority: Primary Status: Acute Qualifiers: Pneumonia type: due to unspecified organism Laterality: unspecified laterality Lung location: unspecified part of lung Qualified Code(s): J18.9 - Pneumonia, unspecified organism (4) Anemia Priority: Secondary Status: Acute Comments: due to severe iron def Qualifiers: Anemia type: iron deficiency Iron deficiency anemia type: unspecified iron deficiency Qualified Code(s): D50.9 - Iron deficiency anemia, unspecified (5) Supratherapeutic INR Priority: Secondary Status: Acute (6) Tobacco abuse Priority: Secondary Status: Chronic (7) Seizure disorder Priority: Secondary Status: Acute - Discharge Medications Prescriptions: Albuterol Sulfate [Proair Respiclick] 2 puff IH Q6HR PRN #1 aer.[email or web address] PRN Reason: Shortness Of Breath Cephalexin [Keflex] 500 mg PO TID #12 capsule Docusate [Colace] 100 mg PO BID PRN #60 capsule PRN Reason: Constipation Ferrous Sulfate 325 mg PO BIDWM #60 tablet Nicotine Patch [Nicoderm] 14 mg TD DAILY #30 patch.td24 Home Medications: FLUoxetine HCl [Fluoxetine HCl] 40 mg PO DAILY 12/20/16 [History] Phenytoin ER [Dilantin ER] 400 mg PO QAM 12/20/16 [History] Warfarin [Coumadin] 5 mg PO QPM 12/20/16 [History] Albuterol Sulfate [Proair Respiclick] 2 puff IH Q6HR PRN #1 aer.pow.ba 12/22/16 [Rx] Cephalexin [Keflex] 500 mg PO TID #12 capsule 12/22/16 [Rx] Docusate [Colace] 100 mg PO BID PRN #60 capsule 12/22/16 [Rx] Ferrous Sulfate 325 mg PO BIDWM #60 tablet 12/22/16 [Rx] Nicotine Patch [Nicoderm] 14 mg TD DAILY #30 patch.td24 12/22/16 [Rx] Allergies/Adverse Reactions: 3 Allergy/AdvReac Type Severity Reaction Status Date / Time Penicillins Allergy Rash Verified 10/30/14 05:23 Procedures/tests Complete & Pending: Procedures Performed prior 72 hours Category Date Time Status EV carotid duplex imaging BI Routine Y 12/21/16 16:27 Completed EV echocardiogram Routine Y 12/21/16 16:27 Completed Date of admission: 12/20/16 16:51 Primary care physician: Cesar Hendrix MD Consults: 12/21/16 16:28 Consult to Neurology [CONS] Routine Consulting Provider: Neurology [facility] Reason for Consult: Syncope question seizure Time Notified: 16:29 Call Completed: No - Patient Status Disposition: Home, Self-Care Condition: Good Overall status at discharge: patient is back to baseline - Discharge Instructions Follow Up With: Cesar Hendrix MD [Primary Care Provider] - 12/28/16 1:00 pm (please follow up as schedule...) Max Bustos MD [Partnered Physician] - Additional Instructions: Please follow up with PCP in one week Please f/u with GI Dr. Bustos in 1-2 weeks regarding your Iron deficiency anemia - Diet and Activity Activity: wear oxygen at all times (2 lit) Diet: low salt diet Hospital course: Ms. Freire is a 61 year old female with medical hx of DVTs and seizures presents from the ED with chief complaint of shortness of breath and dyspnea since last . As per pt's she did have a brief episode of syncope too. Pt had further work up done in the ER her CXR showed Rt LL PNA. so pt was admitted in the hospital and placed her on dialysis biomed technician. She was started on IV hydration and empirical abx With Rocephin and Azithromycin. Her symptoms started improving. She had 2 D Echo done which showed normal LVEF 65%, Moderate LV diastolic dysfunction. Her carotid doppler showed non stenotic plaque. Her MRI of brain showed small focus of remote insult and encephalomalacis in the left frontal lobe with surrounding glioss. Pt was evaluated by neuro and did not recommend any further work up. recommend to continue her regular home med Phenytoin. She also happened to have low Hb at 6.7 which improved to 8.5 after 1 U PRBC. Pt denied any melena / dark colored stools. her Iron panel came back as severe iron def anemia. So started her on Iron supplements and recommend to f /u with GI as an out pt for further work up. So will d/c her home in stable condition today. We did home O2 eval, her SPo2 @ 87 % on RA at resting, so recommend to use 2 lit continuously. Also counseled to quit smoking. - Time Spent with Patient Total time spent providing and/or coordinating discharge services: - Constitutional Vitals: Temp Pulse Resp BP Pulse Ox 97.8 F 90 17 152/68 94 12/22/16 13:29 12/22/16 13:29 12/22/16 15:40 12/22/16 13:29 12/22/16 16:11 General appearance: Present: A&O X 3, no acute distress, answers questions appropriately - Head Head exam: Present: atraumatic, normal inspection - Neck Neck exam general surgery: Present: supple - Respiratory Respiratory exam: Present: decreased breath sounds, wheezes (mild). Absent: rales, respiratory distress, rhonchi - Cardiovascular Cardiovascular exam: Present: RRR, +S1, +S2. Absent: diastolic murmur, gallop, rubs, systolic murmur - GI/Abdominal GI/Abdominal exam: Present: normal bowel sounds, soft. Absent: rebound, rigid, tenderness - Extremities Exam Extremities exam: Absent: calf tenderness, pedal edema, tenderness - Back Exam Back exam: Absent: CVA tenderness (L), CVA tenderness (R) - Psychiatric Psychiatric exam: Present: normal affect, normal mood
[2016-12-22] MEDS ORDERED: *HR* Warfarin 5 MG TABLET PO ONE (18:00)
[2016-12-24 20:08] LABS: Phenytoin (Dilantin) Free 1.3 ug/mL (1.0-2.5); Phenytoin Dose NOT PROVIDED; Phenytoin Dose Frequency NOT PROVIDED; Phenytoin Route NOT PROVIDED
[2016-12-25 07:23] LABS: Phenytoin Percent Free 9.1 % (8.0-14.0); Phenytoin Type of Draw NOT PROVIDED
== END 2016-12-22 17:10 | disposition home or self-care (01) | DRG 193 ==
LOC: EMEROO 09:57 → 2ANU 09:57 → SUATTDRO 16:51
PROVIDERS: ADMIT Internal Medicine; ATTEND Family Medicine